=== PATIENT | female | born 1940 | race Caucasian/White ===

== ENCOUNTER 2017-03-17 11:10 | Emergency (ER) | payer OTHER, MEDICARE ==
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
[2017-03-17] MEDS ORDERED: IBUPROFEN 600 MG TABLET PO ONE (13:22)
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
[2017-03-17 13:44] VITALS: BP 134/56
== END 2017-03-17 13:40 | disposition home or self-care (01) ==
LOC: ER 11:10
DX: R51 Headache (principal); M54.2 Cervicalgia; M54.5 Low back pain; M25.562 Pain in left knee; R41.82 Altered mental status, unspecified; V49.40XA Driver injured in collision with unspecified motor vehicles in traffic accident, initial encounter
CPT/HCPCS: 70450; 72110; 72125; 99284

== ENCOUNTER → 2017-04-16 | Outpatient (CLI) | payer MEDICARE, OTHER ==
--- NOTE | 2017-04-16 16:35 | RADIOLOGY REPORT (SQ) ---
EXAM DESCRIPTION: CT ABD/PELVIS WITH IV ORAL COMPLETED DATE/TIME: 04/16/2017 4:05 pm REASON FOR STUDY: ABDOMINAL PAIN R10.9 UNSPECIFIED ABDOMINAL PAIN N89.8 OTHER SPECIFIED NONINFLAMM ATORY DISORDERS OF VAGINA COMPARISON: 08/22/2007 TECHNIQUE: CT scan of the abdomen and pelvis performed using helical scanning technique with dynamic intravenous contrast injection. No oral contrast. Images reviewed with lung, soft tissue, and bone windows. Reconstructed coronal and sagittal MPR images reviewed. Delayed images for evaluation of the urinary system also acquired. All images stored on PACS. All CT scanners at this facility use dose modulation, iterative reconstruction, and/or weight based d osing when appropriate to reduce radiation dose to as low as reasonably achievable (ALARA). [facility]: Dose Right [facility]: CareDose [facility]: Dose Right [facility]: Teradose 4D [facility]: [employer]ables CONTRAST TYPE AND DOSE: contrast/concentration: Isovue 370.00 mg/ml; Total Contrast Delivered: 67.0 ml; Total Saline Delivered: 65.0 ml RENAL FUNCTION: Creatinine 0.9 RADIATION DOSE: Up-to-date CT equipment and radiation dose reduction techniques were employed. CTDIv ol: 4.2 - 5.0 mGy. DLP: 424 mGy-cm.. LIMITATIONS: None. FINDINGS: LOWER CHEST: No significant findings. No nodules or infiltrates. LIVER: Normal size. No masses or dilated ducts. SPLEEN: Normal size. No focal lesions. PANCREAS: No masses. No significant calcifications. No adjacent inflammation or peripancreatic fluid collections. Pancreatic duct not dilated. GALLBLADDER: No identified stones by CT criteria. No inflammatory changes to suggest cholecystitis. ADRENAL GLANDS: No significant masses or asymmetry. RIGHT KIDNEY AND URETER: No solid masses. No significant calcifications. No hydronephrosis or hyd roureter. LEFT KIDNEY AND URETER: No solid masses. There is a less than 1 cm hypoattenuating lesion most consi stent with cyst. No significant calcifications. No hydronephrosis or hydroureter. AORTA AND VESSELS: No aneurysm. No dissection. Renal arteries, SMA, celiac without stenosis. RETROPERITONEUM: No retroperitoneal adenopathy, hemorrhage or masses. BOWEL AND PERITONEAL CAVITY: There is diverticular change in the sigmoid colon. There is a focal 4.4 x 2.8 cm fluid collection in the mid pelvis. This is surrounded by large bowel. There is a focal a ir-fluid level seen just posterior to the bladder an anterior to the vaginal cuff. This contains con trast. This raises the possibility of colonic vaginal fistula. Pockets of air are demonstrated in t he vaginal cuff as well. APPENDIX: Normal. PELVIS: As above. ABDOMINAL WALL: No masses. No hernias. BONES: No significant or acute findings. OTHER: No other significant finding. IMPRESSION: There is diverticular change in the sigmoid colon. There is a focal 4.4 x 2.8 cm fluid collection in the mid pelvis. This appears to communicate with the vaginal cuff. There is an air po cket in the pelvis containing a small amount of oral contrast. This raises the possibility of coloni c vaginal fistula. TECHNICAL DOCUMENTATION: JOB ID: [id number] Quality ID # [id number]: Final reports with documentation of one or more dose reduction techniques (e.g., Au tomated exposure control, adjustment of the mA and/or kV according to patient size, use of iterative reconstruction technique) 2010 [employer]- All Rights Reserved
== END ==
LOC: RAD 15:20
PROVIDERS: ATTEND Surgery
DX: R10.9 Unspecified abdominal pain (principal); N89.8 Other specified noninflammatory disorders of vagina
CPT/HCPCS: 74177; 82565